=== PATIENT | male | born 1990 | race Caucasian/White ===

== ENCOUNTER 2019-03-12 18:48 | Observation (INO) | payer BC, SELFPAY ==
[2019-03-12 18:49] VITALS: BP 113/71; PULSE 98; RESP 16; TEMP 36.6; O2SAT 99; BMI 24.3
[2019-03-12 19:49] LABS: Absolute Lymphocyte Count 0.87 X10^3/ul (0.83-4.51); Absolute Neutrophil Count 15.8 X10^3/uL (2.0-7.7); Basophil# 0.02 X10^3/uL; Basophil% 0.1 % (0-1); Eosinophil# 0.01 X10^3/uL; Eosinophils% 0.1 % (0-5); Hematocrit 45.1 % (40-54); Lymphocyte # 0.87 X10^3/ul (4.0); Lymphocyte % 4.8 % (19-41); Mean Corp Hgb Conc 35.5 g/gl (32-36); Mean Corpuscular Hgb 29.5 pg (27.0-32.0); Mean Corpuscular Volume 83.1 fL (80-94); Mean Platelet Vol. 9.7 fl (6.2-12.0); Monocyte# 1.41 X10^3/uL; Monocyte% 7.8 % (0-10); Neutrophil # 15.78 X10^3/uL (2.7-7.7); Neutrophil % 86.9 % (47-70); Platelet Count 209 K/mm3 (150-450); RBC Distribution Width CV 12.4 % (11.6-14.6); RBC Distribution Width SD 37.3 fl (35.1-43.9); Red Blood Count 5.43 M/mm3 (4.6-6.2); White Blood Count 18.1 K/mm3 (4.4-11.0)
[2019-03-12 19:50] LABS: POSITIVE COUNT NO; POSITIVE DIFFERENTIAL NO; POSITIVE MORPHOLOGY NO
[2019-03-12 20:08] LABS: Anion Gap 4 (5-15); BUN 11 mg/dL (7-18); Calcium,Total 9.1 mg/dL (8.5-10.1); Chloride 103 mmol/L (98-107); EST Glomerular Filtration Rate 84 mL/min (>60); Est Glom Filt Rate - Afr Amer 101 mL/min (>60); Estimated Creatinine Clearance 92.64 ml/min; Glucose 122 mg/dL (74-106); Potassium 3.4 mmol/L (3.5-5.1); Sodium Level 138 mmol/L (136-145)
[2019-03-12 20:21] LABS: Color, Urine Yellow (Yellow); Glucose, Dipstick Normal (Normal); Ketone-Dipstick 5 mg/dl (Negative); Leukocyte Esterase-Dipstick 25 /ul (Negative); Nitrite-Dipstick Negative (Negative); Occult Blood-Urine Negative /ul (Negative); Protein-Dipstick 30 mg/dl (Negative); Urine Clarity Clear (Clear); Urine Urobilinogen 1 mg/dl (Normal)
[2019-03-12 20:24] LABS: Urine Bilirubin Dipstick 1 mg/dL (Negative)
[2019-03-12 20:39] LABS: Bacteria 1+ /hpf (None Seen); Mucous, Urine 2+ /hpf (<or=2+); Red Blood Cells-Urine 0-5 SEEN /hpf (0-5); Squamous Epithelial Cells - UA 0-5 SEEN /hpf (0-5); White Blood Cells 0-5 SEEN /hpf (0-5)
--- NOTE | 2019-03-12 20:47 | CT_ITS ---
We are attempting to reach an attending provider to discuss findings. An addendum with communication details will be sent when the communication is complete. STUDY: CT ABDOMEN AND PELVIS WITH CONTRAST REASON FOR EXAM: Male, 28 years old. Lower abdominal pain RADIATION DOSAGE (If Supplied By Facility): CTDIvol = ( 10.70 ) mGy, DLP = ( 628.20 ) mGycm TECHNIQUE: Transaxial images were obtained from the dome of the diaphragm to the symphysis pubis with oral contrast. 100 IV/Oral Isovue 300 was administered. Sagittal and coronal images were reconstructed. Individualized dose optimization techniques were used for this CT. COMPARISON: None. FINDINGS: The visualized lung bases are unremarkable. The visualized portions of the heart are within normal limits. Normal liver. Normal gallbladder and extrahepatic biliary system. Normal spleen. Normal pancreas. Normal bilateral adrenal glands. Normal right kidney. Normal left kidney. Normal visualized stomach. There are mildly distended loops of small bowel with air-fluid levels. There is mild to moderate stool within the distal colon. There is a fluid fluid appearance of the cecum. There is a thick-walled distended appearance of the appendix measuring up to 9 mm in caliber without surrounding inflammation. There is a tubular, thick-walled appendix (>7mm), consistent with acute appendicitis. Normal abdominal aorta. Normal inferior vena cava. Normal retroperitoneum. The bladder is decompressed the wall is minimally thickened. Normal visualized prostate gland. There is a small umbilical hernia containing fat. There is a broad disc bulge L4-L5 and L5-S1. CT/Abdomen/Pelvis WITH Contrast IMPRESSION: Findings are consistent with acute appendicitis. Mild ileus. No rupture, no abscess. Mild degenerative change lower lumbar spine. Electronically Signed: Madelin Mendoza MD at 22:50 EDT Tel , Service support ,
--- NOTE | 2019-03-12 20:48 | ED.VISSUMM ---
- ER Visit Summary Date of Service: 03/12/19 Chief Complaint: Abdominal pain History of Present Illness: The patient is a 28 M presenting with abdominal pain. Patient states this started yesterday. He has nausea with no vomiting. He states the pain is worsened with movement. He has had loose stool today. Denies fever. He has had a normal appetite. Denies testicular pain. Denies urinary complaints. Denies other complaints. Physical Examination: Vitals are stable. Patient is afebrile. Alert no acute distress. HEENT exam is unremarkable. Neck is supple. Lungs are clear and equal bilaterally. Heart is regular rate and rhythm. Abdomen is soft right lower quadrant tenderness, voluntary guarding, no rebound Extremities are unremarkable. Skin is warm and dry. No focal neurologic deficit. Remainder of exam is unremarkable. Emergency Department Course and Treatment: CBC shows white count of 18.1. Chemistries unremarkable. Urinalysis unremarkable. Patient declined pain medication initially. CT abdomen pelvis was obtained and shows findings are consistent with acute appendicitis. Mild ileus. No rupture, no abscess. He was given Zosyn IV. He was given morphine, Zofran. Discussed with Dr. Ramon. Disposition: Admission Impression: Acute appendicitis This note was generated with [employer] dictation software. It may contain incorrect words, spelling, and punctuation that were not noted in review of the chart prior to signing ED Disposition - Plan for ED Patient: Referrals: NOT,DEFINED [NON-STAFF] -
[2019-03-12 21:17] VITALS: BP 107/66; PULSE 79; RESP 16; O2SAT 98
[2019-03-12] MEDS: Morphine 4 MG/ML Syringe IV (22:52)
[2019-03-12] MEDS: Ondansetron 4 MG/2 ML Vial IV (22:52)
[2019-03-12 23:34] VITALS: BP 110/68; PULSE 76; RESP 16; O2SAT 96
[2019-03-12 23:36] VITALS: BP 110/68; PULSE 76; RESP 16; O2SAT 96
[2019-03-13] VITALS (11 sets, daily range): BP systolic 109–148; BP diastolic 58–84; PULSE 63–100; RESP 14–18; TEMP 36.3–37.3; O2SAT 92–98; BMI 24.3; BMI 20.7
[2019-03-13] MEDS: Morphine 4 MG/ML Syringe IV (00:04)
[2019-03-13] MEDS: Lactated Ringers 1,000 ML 125 ML IV ×2 (01:55→11:05)
[2019-03-13] MEDS: Morphine 2 MG/ML Syringe IV (03:22)
[2019-03-13] MEDS: 0.9% NaCl Peripheral Flush Adult/Peds IV (03:23)
[2019-03-13 05:30] LABS: Absolute Lymphocyte Count 1.02 X10^3/ul (0.83-4.51); Absolute Neutrophil Count 9.9 X10^3/uL (2.0-7.7); Basophil# 0.01 X10^3/uL; Basophil% 0.1 % (0-1); Eosinophil# 0.02 X10^3/uL; Eosinophils% 0.2 % (0-5); Hemoglobin 14.2 g/dl (13.0-16.5); Lymphocyte # 1.02 X10^3/ul (4.0); Lymphocyte % 8.4 % (19-41); Mean Corp Hgb Conc 35.5 g/gl (32-36); Mean Corpuscular Hgb 29.3 pg (27.0-32.0); Mean Corpuscular Volume 82.6 fL (80-94); Mean Platelet Vol. 9.4 fl (6.2-12.0); Monocyte# 1.11 X10^3/uL; Monocyte% 9.2 % (0-10); Neutrophil # 9.92 X10^3/uL (2.7-7.7); Neutrophil % 81.9 % (47-70); Platelet Count 177 K/mm3 (150-450); RBC Distribution Width CV 12.3 % (11.6-14.6); RBC Distribution Width SD 36.9 fl (35.1-43.9); Red Blood Count 4.84 M/mm3 (4.6-6.2); White Blood Count 12.1 K/mm3 (4.4-11.0)
[2019-03-13 05:37] LABS: POSITIVE COUNT NO; POSITIVE DIFFERENTIAL NO; POSITIVE MORPHOLOGY NO
[2019-03-13 05:45] LABS: Anion Gap 6 (5-15); BUN 9 mg/dL (7-18); BUN/Creat Ratio 10.1 RATIO (10-20); Calcium,Total 8.5 mg/dL (8.5-10.1); Chloride 104 mmol/L (98-107); Creatinine, Serum 0.89 mg/dL (0.70-1.30); EST Glomerular Filtration Rate 107 mL/min (>60); Est Glom Filt Rate - Afr Amer 130 mL/min (>60); Estimated Creatinine Clearance 110.51 ml/min; Glucose 95 mg/dL (74-106); Potassium 3.5 mmol/L (3.5-5.1); Sodium Level 140 mmol/L (136-145)
--- NOTE | 2019-03-13 05:59 | NURSING ---
handoff given to [facility] staff.
--- NOTE | 2019-03-13 06:05 | NURSING ---
Pt taken to AC by [facility] [employer] T[facility]ER.
--- NOTE | 2019-03-13 06:07 | PCM.HP.STD ---
History of Present Illness Date of Admission: 03/12/19 The patient is a 28 year old M presented to the ER due to abdominal pain. Patient states he did have abdominal pain 2 nights ago however he was able to sleep the pain, went away and then at 4 PM yesterday the pain did come back when he woke up. States when he came in the pain was an 8/10 in the right lower quadrant. Patient denies any nausea or vomiting however he did have vomiting on Tuesday before the pain never begun. Patient states he did have some diarrhea yesterday. Patient had a CT abdomen pelvis did show acute appendicitis, white blood cell count was 18. Patient was given Zosyn IV in the ER. Past Medical History Allergies No Known Allergies Allergy (Verified 03/12/19 18:48) Home Medications: Ambulatory Orders Medication Instructions Recorded NK 03/12/19 Surgical History: - - [place] teeth extraction Psychiatric History: No pertinent psych hx Smoking Status: Former smoker Alcohol: None Drugs: None - *Family History Maternal History Items: No pertinent history Review of Systems Constitutional: Reports: Anorexia Cardiovascular: Denies: Chest Pain Respiratory: Denies: Cough Gastrointestinal: Reports: Abdominal Pain, Diarrhea Genitourinary: Denies: Dysuria VTE Information - Inpt Only VTE Present on Admission: Yes VTE Mechan Device Prophylaxis: SCD's - Physical Exam General: Alert, Oriented x3, Cooperative, No apparent distress Lungs: Normal air movement Cardiovascular: Regular rate Abdomen: Soft, Non-Distended, Tender - Right lower quadrant, no peritoneal signs Extremities: No clubbing, No cyanosis, No edema Vital Signs Temp Pulse Resp BP Pulse Ox 98.3 F 89 14 121/72 H 97 03/13/19 02:31 03/13/19 02:31 03/13/19 02:31 03/13/19 02:31 03/13/19 02:31 Oxygen Delivery Method Room Air Weight: 132 lb 4.438 oz Body Mass Index (BMI) 20.7 Intake and Output for Last 24 Hours 03/11/19 03/12/19 03/13/19 23:59 23:59 23:59 Intake Total 440 / 440 Balance 440 / 440 Laboratory Tests Past 24 Hrs 03/12/19 03/12/19 03/12/19 19:40 19:40 20:10 WBC 18.1 H RBC 5.43 Hgb 16.0 Hct 45.1 MCV 83.1 MCH 29.5 MCHC 35.5 RDW 12.4 RDW Differential 37.3 Plt Count 209 MPV 9.7 Immature Gran % (Auto) 0.300 Neut % (Auto) 86.9 H Lymph % (Auto) 4.8 L [place] % (Auto) 7.8 Eos % (Auto) 0.1 Baso % (Auto) 0.1 Absolute Neuts (auto) 15.8 H Absolute Lymphs (auto) 0.87 Total Counted Not Reportable Sodium 138 Potassium 3.4 L Chloride 103 Carbon Dioxide 31.0 Anion Gap 4 L BUN 11 Creatinine 1.10 Estim Creat Clear Calc 92.64 Est GFR (MDRD) Af Amer 101 Est GFR (MDRD) Non-Af 84 BUN/Creatinine Ratio 10.0 Glucose 122 H Calcium 9.1 Urine Color Yellow Urine Clarity Clear Urine pH 6.0 Ur Specific [place] 1.020 Urine Protein 30 H Urine Glucose (UA) Normal Urine Ketones 5 H Urine Occult Blood Negative Urine Nitrite Negative Urine Bilirubin 1 H Urine Urobilinogen 1 H Ur Leukocyte Esterase 25 H Urine RBC 0-5 SEEN Urine WBC 0-5 SEEN Ur Squamous Epith Cells 0-5 SEEN Urine Bacteria 1+ Urine Mucus 2+ 03/13/19 03/13/19 05:20 05:20 WBC 12.1 H RBC 4.84 Hgb 14.2 Hct 40.0 MCV 82.6 MCH 29.3 MCHC 35.5 RDW 12.3 RDW Differential 36.9 Plt Count 177 MPV 9.4 Immature Gran % (Auto) 0.200 Neut % (Auto) 81.9 H Lymph % (Auto) 8.4 L [place] % (Auto) 9.2 Eos % (Auto) 0.2 Baso % (Auto) 0.1 Absolute Neuts (auto) 9.9 H Absolute Lymphs (auto) 1.02 Total Counted Not Reportable Sodium 140 Potassium 3.5 Chloride 104 Carbon Dioxide 30.0 Anion Gap 6 BUN 9 Creatinine 0.89 Estim Creat Clear Calc 110.51 Est GFR (MDRD) Af Amer 130 Est GFR (MDRD) Non-Af 107 BUN/Creatinine Ratio 10.1 Glucose 95 Calcium 8.5 Urine Color Urine Clarity Urine pH Ur Specific [place] Urine Protein Urine Glucose (UA) Urine Ketones Urine Occult Blood Urine Nitrite Urine Bilirubin Urine Urobilinogen Ur Leukocyte Esterase Urine RBC Urine WBC Ur Squamous Epith Cells Urine Bacteria Urine Mucus Assessment/Plan 28-year-old with acute appendicitis 1. Discussed procedure laparoscopic appendectomy, possible open, possible bowel resection along with the risk but not limited to bleeding, infection/abscess, injury to another organ (small bowel, colon, etc.), adhesion, hernia at incision sites, and anesthesia. Patient no further questions at this time. Sakina Ramon M.D. Pager: [phone] [facility] [address] [place] [address], [address] [place] [address] Office: [phone]
--- NOTE | 2019-03-13 06:10 | HP.PCM_ITS ---
History of Present Illness Date of Admission: 03/12/19 The patient is a 28 year old M presented to the ER due to abdominal pain. Patient states he did have abdominal pain 2 nights ago however he was able to sleep the pain, went away and then at 4 PM yesterday the pain did come back when he woke up. States when he came in the pain was an 8/10 in the right lower quadrant. Patient denies any nausea or vomiting however he did have vomiting on Tuesday before the pain never begun. Patient states he did have some diarrhea yesterday. Patient had a CT abdomen pelvis did show acute appendicitis, white blood cell count was 18. Patient was given Zosyn IV in the ER. Past Medical History Allergies No Known Allergies Allergy (Verified 03/12/19 18:48) Home Medications: Ambulatory Orders Medication Instructions Recorded NK 03/12/19 Surgical History: - - [place] teeth extraction Psychiatric History: No pertinent psych hx Smoking Status: Former smoker Alcohol: None Drugs: None - *Family History Maternal History Items: No pertinent history Review of Systems Constitutional: Reports: Anorexia Cardiovascular: Denies: Chest Pain Respiratory: Denies: Cough Gastrointestinal: Reports: Abdominal Pain, Diarrhea Genitourinary: Denies: Dysuria VTE Information - Inpt Only VTE Present on Admission: Yes VTE Mechan Device Prophylaxis: SCD's - Physical Exam General: Alert, Oriented x3, Cooperative, No apparent distress Lungs: Normal air movement Cardiovascular: Regular rate Abdomen: Soft, Non-Distended, Tender - Right lower quadrant, no peritoneal signs Extremities: No clubbing, No cyanosis, No edema Vital Signs Temp Pulse Resp BP Pulse Ox 98.3 F 89 14 121/72 H 97 03/13/19 02:31 03/13/19 02:31 03/13/19 02:31 03/13/19 02:31 03/13/19 02:31 Oxygen Delivery Method Room Air Weight: 132 lb 4.438 oz Body Mass Index (BMI) 20.7 Intake and Output for Last 24 Hours 03/11/19 03/12/19 03/13/19 23:59 23:59 23:59 Intake Total 440 / 440 Balance 440 / 440 Laboratory Tests Past 24 Hrs 03/12/19 03/12/19 03/12/19 19:40 19:40 20:10 WBC 18.1 H RBC 5.43 Hgb 16.0 Hct 45.1 MCV 83.1 MCH 29.5 MCHC 35.5 RDW 12.4 RDW Differential 37.3 Plt Count 209 MPV 9.7 Immature Gran % (Auto) 0.300 Neut % (Auto) 86.9 H Lymph % (Auto) 4.8 L [place] % (Auto) 7.8 Eos % (Auto) 0.1 Baso % (Auto) 0.1 Absolute Neuts (auto) 15.8 H Absolute Lymphs (auto) 0.87 Total Counted Not Reportable Sodium 138 Potassium 3.4 L Chloride 103 Carbon Dioxide 31.0 Anion Gap 4 L BUN 11 Creatinine 1.10 Estim Creat Clear Calc 92.64 Est GFR (MDRD) Af Amer 101 Est GFR (MDRD) Non-Af 84 BUN/Creatinine Ratio 10.0 Glucose 122 H Calcium 9.1 Urine Color Yellow Urine Clarity Clear Urine pH 6.0 Ur Specific [place] 1.020 Urine Protein 30 H Urine Glucose (UA) Normal Urine Ketones 5 H Urine Occult Blood Negative Urine Nitrite Negative Urine Bilirubin 1 H Urine Urobilinogen 1 H Ur Leukocyte Esterase 25 H Urine RBC 0-5 SEEN Urine WBC 0-5 SEEN Ur Squamous Epith Cells 0-5 SEEN Urine Bacteria 1+ Urine Mucus 2+ 03/13/19 03/13/19 05:20 05:20 WBC 12.1 H RBC 4.84 Hgb 14.2 Hct 40.0 MCV 82.6 MCH 29.3 MCHC 35.5 RDW 12.3 RDW Differential 36.9 Plt Count 177 MPV 9.4 Immature Gran % (Auto) 0.200 Neut % (Auto) 81.9 H Lymph % (Auto) 8.4 L [place] % (Auto) 9.2 Eos % (Auto) 0.2 Baso % (Auto) 0.1 Absolute Neuts (auto) 9.9 H Absolute Lymphs (auto) 1.02 Total Counted Not Reportable Sodium 140 Potassium 3.5 Chloride 104 Carbon Dioxide 30.0 Anion Gap 6 BUN 9 Creatinine 0.89 Estim Creat Clear Calc 110.51 Est GFR (MDRD) Af Amer 130 Est GFR (MDRD) Non-Af 107 BUN/Creatinine Ratio 10.1 Glucose 95 Calcium 8.5 Urine Color Urine Clarity Urine pH Ur Specific [place] Urine Protein Urine Glucose (UA) Urine Ketones Urine Occult Blood Urine Nitrite Urine Bilirubin Urine Urobilinogen Ur Leukocyte Esterase Urine RBC Urine WBC Ur Squamous Epith Cells Urine Bacteria Urine Mucus Assessment/Plan 28-year-old with acute appendicitis 1. Discussed procedure laparoscopic appendectomy, possible open, possible bowel resection along with the risk but not limited to bleeding, infection/abscess, injury to another organ (small bowel, colon, etc.), adhesion, hernia at incision sites, and anesthesia. Patient no further questions at this time. Sakina Ramon M.D. Pager: [phone] [facility] [address] [place] [address], [address] [place] [address] Office: [phone]
--- NOTE | 2019-03-13 07:00 | APP_PTH ---
PATIENT: MORIAH BATES II LOC: PCU U#:[id number] AGE/SX: 28/M ROOM: [facility] RE03/12/[address]: Dr. Sakina Ramon MD : 1990 BED: 1 DIS: 03/13/2019 SPEC #: [id number] RECD: 03/13/19 08:40 STATUS: VERNA RECharlee #: [id number] STEPHANIE: 03/13/19 07:[address]: Sakina Ramon DEPT: SURGICAL PATHOLOGY RECD BY: Jarod De Jesus ENTERED: 03/13/19 08:48 SP TYPE: APPENDIX OTHR DR: Mily Primary Care Phys Tissues: Appendix, NOS Procedures: Surgery Specimen Level III HEADER OPERATION: Laparoscopic appendectomy PRE-OP DIAGNOSIS: Acute appendicitis TISSUE SUBMITTED: Appendix MICROSCOPIC DIAGNOSIS Appendix, appendectomy: Acute necrotizing appendicitis. Acute serositis. AM:bridger 03/14/19 MICROSCOPIC DESCRIPTION Slides are reviewed. GROSS DESCRIPTION Received is one container labeled with the patient's name and designated appendix. The specimen consists of an appendix measuring 4.5 cm in length and 0.6 cm in diameter. The attached periappendiceal adipose tissue measures up to 1.5 cm in width. The serosa is covered focally with melton, purulent exudate. No obvious perforation is identified. The mucosa is congested and hemorrhagic. No fecalith is identified. Glass Beveler sections are submitted in one cassette. / SJ:bridger 03/13/19 TC:3 [facility]: [id number]
--- NOTE | 2019-03-13 08:04 | PCM.OPRPT ---
Report of Operation Date of Procedure: 03/13/19 Pre-Operative Diagnosis: Acute appendicitis Post-Operative Diagnosis: Same Surgery/Procedure Performed:: Laparoscopic appendectomy malt specifications control assistant: Sondra Guerra Type of Anesthesia:: General/Supplemental Anesthesiologist: Bill Barillas Special Medications: Zosyn 3.375 g IV x1 Specimen's removed: appendix Estimated Blood Loss (mL): <10 cc Fluids Replaced: 1500 cc Description of Procedure: Indications: 28-year-old male presented to the ER with new right lower quadrant pain starting 2 days ago however it did resolve and came back yesterday about 4 PM. On workup he was found to have acute appendicitis on CT and a leukocytosis of 18 was given Zosyn IV repeat CBC was 12. Patient was started on antibiotics in the ER and on the floor for acute appendicitis-Zosyn 3.375 g IV q. 8 Description of the procedure: The patient was placed on operating table in supine position. General anesthesia was induced. A timeout was completed verifying correct patient, procedure, sacrum position and special, prior to beginning procedure. A Daniel catheter and orogastric tube placed. Abdomen was prepped and draped in usual sterile fashion. Incision was made in the natural skin line above the umbilicus with a 15 blade scalpel. The fascia was elevated and incised. Entry into the peritoneum was confirmed visually and no bowel was noted in the vicinity of the incision. The Call trocar was placed under direct vision. Abdomen insufflated with a pressure of 12-15 mmHg. Patient tolerated insertion well. The scope was inserted and the abdomen inspected. No injuries from initial trocar placement were noted. Minimal amount of fluid was seen in the right lower quadrant. An direct visualization 2 -5 mm trocars were placed one above the symphysis pubis and below the hairline and one in the left lower quadrant lateral to the rectus muscle. Care is taken to avoid injury to the bladder and inferior epigastric vessels. The table was placed in Trendelenburg position with the right side elevated. The omentum was adherent to the right lower quadrant abdominal wall which was able to be removed with gentle traction. The omentum was inflamed and stuck to the appendix again was able to be with gentle traction. The appendix was grasped with atraumatic grasper and elevated. It was noted to be inflamed. A window was developed in the mesoappendix at the point between the base of the appendix and the cecum. An endoscopic 45 mm linear cutting stapler blue load was then used to divide and staple the base of the appendix. The Enseal was used to divide the mesoappendix. The appendix was withdrawn into the Call trocar after being placed endoscopically retrieval bag. Appendix was sent to pathology. The appendiceal stump was then irrigated and and there is a small amount of oozing at the staple line, 5 mm titanium clip was placed x2 and hemostasis was assured. Small amount of purulent fluid was suctioned in the pelvis no other pathology was identified. Secondary trochars were removed under direct visualization. No bleeding was noted trocar sites. The laparoscope withdrawn and the umbilical trocar removed. The abdomen was allowed to collapse. Local anesthesia of 23 mL of 0.5% Marcaine was used at the incision sites. The umbilical trocar site was closed with the [id number] 0 Vicryl suture. The skin was closed up to clear sutures of 4-0 Monocryl and Steri-Strips. The patient was extubated. The patient tolerated the procedure well and was taken to the postanesthesia care unit in satisfactory condition. - Complications None
[2019-03-13] MEDS: Bupiv/Epi 0.5% Mpf 30 ML Vial (08:08)
--- NOTE | 2019-03-13 08:09 | OP.PCM_ITS ---
Report of Operation Date of Procedure: 03/13/19 Pre-Operative Diagnosis: Acute appendicitis Post-Operative Diagnosis: Same Surgery/Procedure Performed:: Laparoscopic appendectomy field talent qualification specialist: Sondra Guerra Type of Anesthesia:: General/Supplemental Anesthesiologist: Bill Barillas Special Medications: Zosyn 3.375 g IV x1 Specimen's removed: appendix Estimated Blood Loss (mL): <10 cc Fluids Replaced: 1500 cc Description of Procedure: Indications: 28-year-old male presented to the ER with new right lower quadrant pain starting 2 days ago however it did resolve and came back yesterday about 4 PM. On workup he was found to have acute appendicitis on CT and a leukocytosis of 18 was given Zosyn IV repeat CBC was 12. Patient was started on antibiotics in the ER and on the floor for acute appendicitis-Zosyn 3.375 g IV q. 8 Description of the procedure: The patient was placed on operating table in supine position. General anesthesia was induced. A timeout was completed verifying correct patient, procedure, sacrum position and special, prior to beginning procedure. A Daniel catheter and orogastric tube placed. Abdomen was prepped and draped in usual sterile fashion. Incision was made in the natural skin line above the umbilicus with a 15 blade scalpel. The fascia was elevated and incised. Entry into the peritoneum was confirmed visually and no bowel was noted in the vicinity of the incision. The Call trocar was placed under direct vision. Abdomen insufflated with a pressure of 12-15 mmHg. Patient tolerated insertion well. The scope was inserted and the abdomen inspected. No injuries from initial trocar placement were noted. Minimal amount of fluid was seen in the right lower quadrant. An direct visualization 2 -5 mm trocars were placed one above the symphysis pubis and below the hairline and one in the left lower quadrant lateral to the rectus muscle. Care is taken to avoid injury to the bladder and inferior epigastric vessels. The table was placed in Trendelenburg position with the right side elevated. The omentum was adherent to the right lower quadrant abdominal wall which was able to be removed with gentle traction. The omentum was inflamed and stuck to the appendix again was able to be with gentle traction. The appendix was grasped with atraumatic grasper and elevated. It was noted to be inflamed. A window was developed in the mesoappendix at the point between the base of the appendix and the cecum. An endoscopic 45 mm linear cutting stapler blue load was then used to divide and staple the base of the appendix. The Enseal was used to divide the mesoappendix. The appendix was withdrawn into the Call trocar after being placed endoscopically retrieval bag. Appendix was sent to pathology. The appendiceal stump was then irrigated and and there is a small amount of oozing at the staple line, 5 mm titanium clip was placed x2 and hemostasis was assured. Small amount of purulent fluid was suctioned in the pelvis no other pathology was identified. Secondary trochars were removed under direct visualization. No bleeding was noted trocar sites. The laparoscope withdrawn and the umbilical trocar removed. The abdomen was allowed to collapse. Local anesthesia of 23 mL of 0.5% Marbin yara was used at the incision sites. The umbilical trocar site was closed with the [id number] 0 Vicryl suture. The skin was closed up to clear sutures of 4-0 Monocryl and Steri-Strips. The patient was extubated. The patient tolerated the procedure well and was taken to the postanesthesia care unit in satisfactory condition. - Complications None
--- NOTE | 2019-03-13 08:13 | DCINST_ITS ---
Discharge Diet: Light diet - advance as tolerated Discharge Activity: May not drive while taking narcotic pain medications. Lifting Restrictions: No lifting greater than 20 pounds x 4 weeks no strenuous exercise for 8 wks Call your doctor if your incision/area has: Continuous Slow Oozing, Sudden Increased Bleeding, Increased Pain/ Swelling, Increased Redness, Foul Smelling Discharge, Swelling at the incision site Call your doctor if you observe: Fever of 101 or Higher Remove Dressing in (days):: 1 Additional Instructions: Okay to take ibuprofen 400-600 mg PO q6hr PRN along with the Percocet. Avoid Tylenol since there is already Tylenol in the Percocet. Take all pain meds with food. Percocet can cause constipation recommend taking daily stool softener (i.e. Colace/docusate) while taking the pain meds. Recommend starting some MiraLAX in 1 to 2 days if no bowel movement. If still no bowel movement the following day recommend taking magnesium citrate half the bottle and waiting 4-6 hours if still no results take the other half the bottle. Medications to take at Discharge Oxycodone HCl/Acetaminophen [Percocet 5/325] 1 - 2 tablet PO Q4H PRN PRN 5 Days #25 tablet 03/13/19 Allergies/Adverse Reactions: Allergies No Known Allergies Allergy (Verified 03/12/19 18:48) The following prescriptions were given: Oxycodone HCl/Acetaminophen [Percocet 5/325] 1 - 2 tablet PO Q4H PRN PRN 5 Days #25 tablet PRN Reason: Pain Primary Care Physician: NOT,DEFINED [NON-STAFF] - Test Results: Test results from this visit will be discussed in further detail at your follow- up appointment, if applicable. Please Follow Up With: Sakina Ramon MD - After 5:00 on the weekends call [phone] with any concerns When: Call for follow-up appointment in 2 weeks [phone] Proposed Discharge Date: 03/13/19
== END 2019-03-13 08:12 | disposition home or self-care (01) ==
LOC: ED 21:02 → PCU 03-13 00:23
PROVIDERS: Admitting Provider Surgery; Emergency Provider Emergency Medicine; Referring Provider Surgery; Visit Provider Surgery
PROC: 0DTJ4ZZ Resection of Appendix, Percutaneous Endoscopic Approach (ICD-10-PCS; CPT 44970; principal; 2019-03-13 07:00)
DX: K35.80 Unspecified acute appendicitis (principal); Z87.891 Personal history of nicotine dependence
CPT/HCPCS: 44970; 36415; 74177; 80048; 81001; 85025; 88304; 96361; 96365; 96375; 96376; 99218; 99284; J7040; J7120; Q9967; A4216; C1760; G0378; J2405